=== PATIENT | male | born 1975 | race Two or more races ===

== ENCOUNTER → 2024-09-15 | Outpatient (CLI) | payer MEDICAID ==
[~2024-09-15] MED LIST: ASPI-498 OR; FAMO20TA10 PO; METH4PAK PO
== END | disposition home or self-care (01) ==
LOC: XYW 13:08
PROVIDERS: ATTEND Internal Medicine
DX: R00.2 Palpitations (principal); E66.9 Obesity, unspecified
CPT/HCPCS: 93306